=== PATIENT | female | born 1960 | race African-American/Black ===

== ENCOUNTER 2017-01-23 08:40 | Emergency (ER) | payer OTHER ==
[~2017-01-23] VITALS: Ht 160 cm; Wt 95.0 kg
[~2017-01-23 08:40] MED LIST: DICL0.1S LEFT EYE; DORZ2SOL15 LEFT EYE; HYDR50TA94 PO; PRED1SUS LEFT EYE
[2017-01-23 08:52] VITALS: BP 178/80; PULSE 88; RESP 16; TEMP 98.8; O2SAT 100
--- NOTE | 2017-01-23 10:44 | RADRPT ---
EXAM DATE/TIME: 01/23/2017 10:12 [place] COMPARISON: No previous studies available for comparison. INDICATIONS : Patient complains of right knee pain after falling at work. MEDICAL HISTORY : None. SURGICAL HISTORY : None. ENCOUNTER: Initial ACUITY: 1 day PAIN SCORE: 4/10 LOCATION: Right Knee. FINDINGS: Four views of the right knee demonstrate no fracture or dislocation. No joint effusion is present. Th ere is no significant arthropathy and mineralization is within normal limits. No soft tissue abnormal ity or radiopaque foreign body is identified. There is popliteal artery calcification. CONCLUSION: 1. No acute right knee abnormality is identified. 2. 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 Edmond Marinelli MD on January 23, 2017 at 10:39 Board Certified Radiologist. This report was verified electronically.
[2017-01-23] MEDS ORDERED: MEDI220T PO (11:01)
--- NOTE | 2017-01-23 11:02 | PD ---
HPI . Right knee pain Chief Complaint: Injury Time Seen by Provider: 10:10 Travel History International Travel<30 days: No Contact w/Intl Traveler<30days: No Traveled to known affect area: No History of Present Illness HPI 56-year-old female presents emergency department for evaluation of right knee pain. Patient slipped at work and fell onto her right knee. Patient denies any other injuries during this fall. Patient denies any head or losing consciousness. Patient has been ambulatory with a lump subsequent to the fall. Patient's major medical history is diabetes and asthma. Patient denies being on any blood thinners. 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) Social History Alcohol Use: No Tobacco Use: No Substance Use: No Allergies-Medications (Allergen,Severity, Reaction): Coded Allergies: aspirin (Unverified Allergy, Intermediate, STOMACH SPASMS, 01/23/17) penicillin G (Unverified Allergy, Intermediate, 01/23/17) rofecoxib (Unverified Allergy, Intermediate, 01/23/17) Reported Meds & Prescriptions Reported Meds & Active Scripts Active Naproxen Sodium 220 Mg Tab 440 Mg PO BID PRN Hydroxyzine HCl 50 Mg Tab 50 Mg PO TID PRN Reported Pred Forte Opth 1% (Prednisolone Acetate Opth 1%) 1% Susp 1 Drop LEFT EYE BID Diclofenac Opth Drops 0.1% Soln 1 Drop LEFT EYE QID Dorzolamide-Timolol Opth Drops 22.3-6.8 Mg/Ml Soln 1 Drop LEFT EYE BID Review of Systems Except as stated in HPI: all other systems reviewed are Neg Physical Exam Narrative GENERAL: Well-nourished, well-developed 56-year-old female patient in no acute distress. Nontoxic appearing. SKIN: Focused skin assessment warm/dry. HEAD: Normocephalic. Atraumatic. EYES: No scleral icterus. No injection or drainage. NECK: Supple, trachea midline. No JVD or lymphadenopathy. CARDIOVASCULAR: Regular rate and rhythm without murmurs, gallops, or rubs. Pedal pulses +2 bilaterally. RESPIRATORY: Breath sounds equal bilaterally. No accessory muscle use. GASTROINTESTINAL: Abdomen soft, non-tender, nondistended. MUSCULOSKELETAL: Mildly edematous right knee. Tender to palpation. No obvious deformity, ecchymosis or erythema noted. Full range of motion with flexion and extension of right knee. BACK: Nontender without obvious deformity. No CVA tenderness. Data Data Last Documented VS Vital Signs Date Time Temp Pulse Resp B/P (MAP) Pulse Ox O2 Delivery O2 Flow Rate FiO2 01/23/17 08:52 98.8 88 16 178/80 (112) 100 Orders Orders Knee, Complete (4vws) (01/23/17 ) Ed Discharge Order (01/23/17 11:02) Splint Or Brace Apply/Monitor (01/23/17 11:02) [facility] Medical Decision Making Medical Screen Exam Complete: Yes Emergency Medical Condition: Yes Differential Diagnosis Differential diagnoses include but not limited to right knee contusion, right knee sprain, right patellar fracture, right patellar dislocation Narrative Course 56-year-old female presents emergency department for evaluation of right knee pain after slipping at work and falling onto the right knee. The right knee is slightly edematous but retains full range of motion with no obvious deformity, ecchymosis or erythema. The right leg is neurovascularly intact. X-ray of the right knee ordered and shows no acute abnormality however atherosclerotic disease noted in the popliteal artery. Patient's only major medical history is diabetes and asthma per patient. Right knee Inocencio wrap and patient discharged home with a short dose prescription of naproxen to manage the pain and swelling and instructions to follow-up with primary care. Last Impressions Knee X-Ray 01/23/17 0000 Signed Impressions: Service Date/Time: Monday, January 23, 2017 10:12 - CONCLUSION: 1. No acute right knee abnormality is identified. 2. 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 Edmond Marinelli MD Diagnosis Primary Impression: Contusion of knee, right Qualified Codes: S80.01XA - Contusion of right knee, initial encounter Referrals: Primary Care Physician Patient Instructions: General Instructions, Knee Pain (GEN) Additional Instructions: Please return to emergency department if your symptoms return or worsen. Follow up with your primary care provider. Take medications as prescribed. Rice therapy to right knee, rest, ice, Inocencio wrap with activity and elevate with resting. Med/Other Pt SpecificInfo: Prescription(s) given Scripts Naproxen Sodium (Naproxen Sodium) 220 Mg Tab 440 MG PO BID Y for Pain Management, #10 TAB 0 Refills Prov: Nathalia Campbell 01/23/17 Disposition: 01 DISCHARGE HOME Condition: Stable Nathalia Campbell Jan 23, 2017 11:01
== END 2017-01-23 11:21 | disposition home or self-care (01) ==
LOC: NEPA 08:40
DX: S80.01XA Contusion of right knee, initial encounter (principal); E11.9 Type 2 diabetes mellitus without complications; J45.909 Unspecified asthma, uncomplicated; M79.7 Fibromyalgia; W01.0XXA Fall on same level from slipping, tripping and stumbling without subsequent striking against object, initial encounter; Y99.0 Civilian activity done for income or pay; Z79.899 Other long term (current) drug therapy; Z88.6 Allergy status to analgesic agent; Z88.0 Allergy status to penicillin
CPT/HCPCS: 73564; 99283